=== PATIENT | male | born 2000 | race Caucasian/White ===

== ENCOUNTER 2025-04-18 11:29 | Outpatient (CLI) | payer OTHER, SELFPAY | END 2025-04-18 11:30 | disposition home or self-care (01) | LOC: AMB 04-20 12:30 | PROVIDERS: Visit Provider Emergency Medicine Emergency Medical Services | DX: S19.9XXA Unspecified injury of neck, initial encounter (principal); V59.49XA Driver of pick-up truck or van injured in collision with other motor vehicles in traffic accident, initial encounter; Y92.411 Interstate highway as the place of occurrence of the external cause | CPT/HCPCS: A0425; A0427 ==